=== PATIENT | male | born 1940 | race American Indian/Alaskan Native ===

== ENCOUNTER 2020-10-01 06:19 | Day surgery (SDC) | payer MEDICARE, OTHER ==
[~2020-10-01 06:19] MED LIST: LACTATED RINGERS 1,000 ML IV SCH
[2020-10-01] MEDS ORDERED: BACTERIOSTATIC SODIUM CHLORIDE 0.9% 30 ML VIAL INFILTRATI ONE (06:48)
[2020-10-01] MEDS ORDERED: fentaNYL 100 MCG/2 ML INJ IV PRN (07:27)
--- NOTE | 2020-10-01 07:27 | Anesthesia Consultation ---
Anesthesia Consult and Med Hx Date of service: 10/01/20 - Airway Anesthetic Teeth Evaluation: Edentulous ROM Head & Neck: Adequate Mental/Hyoid Distance: Adequate Mallampati Class: Class III Intubation Access Assessment: Possibly Difficult - Pulmonary Exam CTA: Yes - Cardiac Exam Cardiac Exam: RRR - Pre-Operative Health Status ASA Pre-Surgery Classification: ASA3 Proposed Anesthetic Plan: General - Pulmonary Hx Smoking: Yes (>50 pk yr hx) Hx Respiratory Symptoms: Yes (occasional cough; chronic, unchanged) SOB: No Home Oxygen Therapy: No - Cardiovascular System Hx Hypertension: Yes Hx Heart Attack/AMI: No Hx Percutaneous Transluminal Coronary Angioplasty (PTCA): No Hx Cardia Arrhythmia: No - Central Nervous System CVA: No Hx Psychiatric Problems: Yes (PTSD, anxiety, depression) - Gastrointestinal Hx Gastroesophageal Reflux Disease: No - Endocrine Hx Renal Disease: No Hx Liver Disease: No Hx Non-Insulin Dependent Diabetes: Yes Hx Thyroid Disease: No - Other Systems Hx Cancer: Yes (prostate ca) Hx Obesity: No
--- NOTE | 2020-10-01 07:27 | Anesthesia Day of Surgery ---
Anesthesia Day of Surgery - Day of Surgery Patient Examined: Yes Patient H&P Reviewed: Yes Patient is NPO: Yes
[2020-10-01] MEDS ORDERED: ceFAZolin/STERILE WATER 2 GM/20 ML SYRINGE IV NR (07:31)
[2020-10-01] MEDS ORDERED: SODIUM CHLORIDE 0.9% 1000 ML 1,000 ML ONE (07:35)
[2020-10-01] MEDS ORDERED: ONDANSETRON 4 MG/2 ML INJ ONE (07:52)
[2020-10-01] MEDS ORDERED: propofoL 200 MG/20 ML VIAL IV ONE (07:52)
[2020-10-01] MEDS ORDERED: dexAMETHasone 20 MG/5 ML VIAL ONE (07:52)
[2020-10-01] MEDS ORDERED: PHENYLEPHRINE/NS 1,000 MCG/10 ML SYRINGE (OR USE) IV ONE (07:52)
[2020-10-01] MEDS ORDERED: LIDOCAINE MPF (2%) 20 MG/1 ML VIAL 5 ML ONE (07:52)
[2020-10-01] MEDS ORDERED: fentaNYL 100 MCG/2 ML INJ ONE ×2 (07:52→09:06)
[2020-10-01] MEDS ORDERED: GLYCOPYRROLATE 0.4 MG/2 ML INJ ONE (07:52)
[2020-10-01] MEDS ORDERED: SUCCINYLCHOLINE CHLORIDE 200 MG/10 ML INJ MDV ONE (07:53)
[2020-10-01] MEDS ORDERED: WATER FOR IRRIG STERILE 1,500 ML BOTTLE IR ONE (08:35)
[2020-10-01] MEDS ORDERED: WATER FOR IRRIG STERILE 2000 ML IR ONE (08:35)
--- NOTE | 2020-10-01 09:46 | Post Operative Note ---
Date of procedure: 10/01/20 Pre-op diagnosis: cap Post-op diagnosis: same Findings: tiny gland Procedure: cysto cryo abllation Anesthesia: MURALI Surgeon: SCOT SAGE Estimated blood loss: minimal Pathology: none Condition: stable Disposition: PACU
--- NOTE | 2020-10-01 09:47 | Discharge Summary ---
Short Stay Discharge Plan Activity: other (no straining ) Weight Bearing Status: Full Weight Bearing Diet: low fat, low cholesterol, low salt Wound: open to air (ice in RR and x 24 hrs ) Special Instructions: other (teach pritchard care ) Durable Medical Equipment Needed Upon Discharge: other (pritchard ) Follow up with: [facility] [Primary Care Provider] - 7 Days SCOT SAGE MD [Staff Physician] - 7 Days
--- NOTE | 2020-10-01 11:34 | Operative Report ---
PREOPERATIVE DIAGNOSIS: Recurrent prostate cancer. POSTOPERATIVE DIAGNOSIS: Recurrent prostate cancer. PROCEDURE: Cryosurgical ablation of prostate. SURGEON: Dr. Harvey. ANESTHESIA: General. FINDINGS: This is a gentleman with history of prostate cancer. He now presents for treatment. He has had previous radiation years ago. He has extensive disease, left greater than the right. PROCEDURE IN DETAIL: The patient was brought to the operating room and placed on the operating table. Following induction of anesthesia, placed in lithotomy position, prepped and draped in usual sterile fashion. At this point, a Burns catheter was easily inserted. The scrotum was elevated. Ultrasound was placed. We had a very, very small prostate length about 2 cm to 2.5 cm at max. Catheter was in good position and probes 1 and 2 were placed and then we placed 3 probes on the right, which had more tissue, 2 on the left, which was very short and even though the disease was more on the left. There was no room to place a third probe on the left. Denonvilliers temperature probe was easily inserted as well as external sphincter. Once all the probes and temperature probes and treatment probes were placed, the catheter was removed. Cystoscopy showed no urethral injury and the wire was placed and the warmer was placed after it was checked. Warmer was working well. This was secured and all the probes were rechecked multiple times. The first freeze was carried out starting at about 25 on 1 and 2 and then working on our way down. We had an excellent ice ball and Denonvilliers got to about close to 0. It was a little more off the midline, so we had to watch it very closely because he has had previous radiation as well. The thaw was carried out. A second freeze was carried out in a symmetrical way. We even started lower at 20 on both sides. The patient tolerated the procedure well. Excellent ice ball was achieved on both times with excellent thaw and at the conclusion after about 10-15 minute warmer, we placed an 18 coude without difficulty. The patient tolerated the procedure well and brought to recovery in stable condition. JOB# [id number] DIOR/JESSICA
--- NOTE | 2020-10-01 12:26 | Post Anesthesia Evaluation ---
- Post Anesthesia Evaluation Patient Participated: Yes Airway Patent: Yes Stable Respiratory Function: Yes Nausea/Vomiting: No Temp > 96.8F: Yes Pain Manageable: Yes Adequeate Hydration: Yes Anesthesia Complications: No
[2020-10-01 12:39] VITALS: BP 146/75
== END 2020-10-01 13:00 | disposition home or self-care (01) ==
LOC: OR 06:19
PROVIDERS: ATTEND Urology
DX: C61 Malignant neoplasm of prostate (principal); Z20.828 Contact with and (suspected) exposure to other viral communicable diseases; F17.210 Nicotine dependence, cigarettes, uncomplicated; E78.00 Pure hypercholesterolemia, unspecified; I10 Essential (primary) hypertension; M19.90 Unspecified osteoarthritis, unspecified site; E11.9 Type 2 diabetes mellitus without complications; F32.9 Major depressive disorder, single episode, unspecified; F41.9 Anxiety disorder, unspecified; Z72.89 Other problems related to lifestyle; Z79.899 Other long term (current) drug therapy; Z79.84 Long term (current) use of oral hypoglycemic drugs; Z79.82 Long term (current) use of aspirin; Z98.49 Cataract extraction status, unspecified eye; Z87.442 Personal history of urinary calculi; Z87.440 Personal history of urinary (tract) infections; Z98.890 Other specified postprocedural states
CPT/HCPCS: 55873; 82962; A4217; C2618; J0330; J0690; J1100; J2370; J2405; J2704; J3010; J7030; J7120; U0003